=== PATIENT | female | born 1980 | race Caucasian/White ===

== ENCOUNTER 2022-05-10 06:54 | Emergency (ER) | payer SELFPAY ==
[2022-05-10] MEDS ORDERED: methylPREDNISolone Sod Succ 40 MG VIAL ONE (08:23)
[2022-05-10] MEDS ORDERED: HYDROcodone/Acetaminophen 5/325 mg Tablet ONE (08:24)
== END 2022-05-10 09:05 | disposition home or self-care (01) ==
LOC: CSHERS 06:54
DX: J18.9 Pneumonia, unspecified organism (principal); K80.20 Calculus of gallbladder without cholecystitis without obstruction; F17.290 Nicotine dependence, other tobacco product, uncomplicated
CPT/HCPCS: 76705; 96374; J2920

== ENCOUNTER 2023-09-12 10:10 | Outpatient (CLI) | payer BC | END 2023-09-12 10:11 | disposition home or self-care (01) | LOC: CSHMAMMO 10:10 | PROVIDERS: ATTEND Nurse Practitioner Family | DX: Z12.31 Encounter for screening mammogram for malignant neoplasm of breast (principal); Z80.3 Family history of malignant neoplasm of breast | CPT/HCPCS: 77063; 77067 ==